=== PATIENT | male | born 1940 | race Caucasian/White ===

== ENCOUNTER 2017-09-09 11:27 | Inpatient (IN) | payer MEDICARE, OTHER ==
[2017-08-23 15:18] LABS: BASOPHILS % (AUTO) 0.4 % (0-1); EOSINOPHILS # (AUTO) 0.3 X10'3 (0-0.9); EOSINOPHILS % (AUTO) 2.7 % (0-6); LYMPHOCYTES # (AUTO) 5.1 X10'3 (1.1-4.8); MEAN CORPUSCULAR HEMOGLOBIN 33.2 PG (27.0-31.0); MEAN CORPUSCULAR HGB CONC 33.9 % (33.0-36.5); MEAN CORPUSCULAR VOLUME 97.9 FL (78-98); MEAN PLATELET VOLUME 9.4 FL (7.4-10.4); MONOCYTES # (AUTO) 0.6 X10'3 (0-0.9); MONOCYTES % (AUTO) 5.8 % (2-12); NEUTROPHILS # (AUTO) 3.8 X10'3 (1.8-7.7); NEUTROPHILS % (AUTO) 39.1 % (42-75); PRE OP HEMATOCRIT 43.6 % (42.0-52.0); PRE OP HEMOGLOBIN 14.8 g/dL (14.0-17.9); PRE OP PLATELET COUNT 161 X10'3 (140-440); RED BLOOD COUNT 4.45 X10'6 (4.70-6.10); RED CELL DISTRIBUTION WIDTH 12.7 % (11.5-14.5)
[2017-08-23 15:36] LABS: ALBUMIN/GLOBULIN RATIO 1.5 (1.1-1.5); ALKALINE PHOSPHATASE 88 IU/L (46-116); BLOOD UREA NITROGEN 20 MG/DL (7-18); CALCIUM 8.9 MG/DL (8.5-10.1); CHLORIDE 107 MMOL/L (99-107); CREATININE 0.91 MG/DL (0.60-1.10); PRE OP ALT 33 U/L (30-65); PRE OP ANION GAP 5 (8-16); PRE OP AST 16 U/L (10-37); PRE OP BILIRUB, TOTAL 1.1 MG/DL (0.0-1.0); PRE OP GLUCOSE 88 MG/DL (70-104); PRE OP POTASSIUM 3.6 MMOL/L (3.4-5.1); PRE OP SODIUM 141 MMOL/L (135-145); TOTAL PROTEIN 6.7 G/DL (6.4-8.2); eGFR 81 ML/MIN
[~2017-09-09] VITALS: Ht 180.3 cm; Wt 95.1 kg
[2017-09-09] VITALS (18 sets, daily range): BP systolic 107–142; BP diastolic 51–79
[~2017-09-09 11:27] MED LIST: ASPI-1265 PO; Cefazolin 2GM/50ML dext iso,osmotic IVPB IV ONE; MULT-38 PO; SIMV20TA5 PO; famotidine 20mg tablet PO ONE; ringers solution, lacted 1,000 ML IV SCH; tranexamic acid inj. 1,000 MG in normal saline 100ml IV soln 90 ML IV ONE; vancomycin inj 1,500 MG in normal saline 300ml IV soln IV ONE
[2017-09-09] MEDS ORDERED: ceFAZolin 1000mg inj ONE ×2 (11:40→14:21)
[2017-09-09] MEDS ORDERED: LIDOcaine 1% (10mg/ml) 2ml vial ONE (12:23)
[2017-09-09] MEDS ORDERED: ROPIVAcaine 0.5% (5mg/ml) 30ml vial ONE (12:50)
[2017-09-09] MEDS ORDERED: tetracaine 1% (10mg/ml) pres. free inj. ONE (12:50)
[2017-09-09] MEDS ORDERED: fentaNYL/PF 50MCG/1 ML 2ML syringe ONE (12:59)
[2017-09-09] MEDS ORDERED: MIDAZolam 1mg/ml 10ml vial ONE (13:09)
[2017-09-09] MEDS ORDERED: ringers solution, lacted 1,000 ML IV SCH (13:32)
[2017-09-09] MEDS ORDERED: enalaprilat dihydrate 2.5mg/2ml vial IV PRN (13:35)
[2017-09-09] MEDS ORDERED: ondansetron/PF 4mg/2ml inj IV PRN ×2 (13:35)
[2017-09-09] MEDS ORDERED: fentaNYL/PF 50MCG/1 ML 2ML syringe IV PRN ×2 (13:35)
[2017-09-09] MEDS ORDERED: hydrALAZINE 20mg/ml inj. IV PRN (13:35)
[2017-09-09] MEDS ORDERED: morphine 4 MG/ML inj SYRINge IV PRN ×2 (13:35)
[2017-09-09] MEDS ORDERED: diphenhydrAMINE 50 mg/ml inj IV PRN (13:35)
[2017-09-09] MEDS ORDERED: magnesium hydroxide 30ml (MOM) UD suspension PO PRN (15:25)
[2017-09-09] MEDS ORDERED: HYDROmorphone inj. 0.5 MG/0.5 ML DISP.SYRIN IV PRN (15:25)
[2017-09-09] MEDS ORDERED: acetaminophen 325mg tablet PO PRN (15:25)
[2017-09-09] MEDS ORDERED: diphenhydrAMINE 25mg capsule PO PRN ×2 (15:25)
[2017-09-09] MEDS ORDERED: bisacodyl 10mg suppository rectal RC PRN (15:25)
[2017-09-09] MEDS ORDERED: ASPI-1265 PO (15:51)
[2017-09-09] MEDS ORDERED: MULT-38 PO (15:51)
[2017-09-09] MEDS ORDERED: SIMV20TA5 PO (15:51)
[2017-09-09] MEDS ORDERED: aspirin 325mg tablet PO SCH (17:30)
[2017-09-09] MEDS ORDERED: tranexamic acid inj. 1,000 MG in normal saline 100ml IV soln 100 ML IV ONE (18:25)
[2017-09-09] MEDS: ondansetron/PF 4mg/2ml inj IV PRN (19:58)
[2017-09-09] MEDS: ceFAZolin 1GM/D5W- ADD-VANTAGE 50 ML IV SCH (20:09)
[2017-09-09] MEDS: potassium Cl 20mEq in NS 1,000 ML IV SCH (20:09)
[2017-09-09] MEDS ORDERED: aspirin 81mg tab.chew PO ONE (21:15)
[2017-09-09] MEDS: sennosides 8.6mg tablet PO SCH (21:16)
[2017-09-09] MEDS: atorvastatin 20mg tablet PO SCH (21:16)
[2017-09-09] MEDS: HYDROcodone/acetaminophen 10/325mg tab PO PRN (23:00)
[2017-09-10] MEDS ORDERED: vancomycin/NS 1 GM ADD-VANTAGE 250 ML IV SCH
[2017-09-10 02:46] VITALS: BP 118/43
[2017-09-10] MEDS: ondansetron/PF 4mg/2ml inj IV PRN (03:07)
[2017-09-10] MEDS: ceFAZolin 1GM/D5W- ADD-VANTAGE 50 ML IV SCH (04:07)
[2017-09-10] MEDS: potassium Cl 20mEq in NS 1,000 ML IV SCH ×3 (04:10→22:03)
[2017-09-10 05:00] VITALS: BP 150/64
[2017-09-10] MEDS: HYDROcodone/acetaminophen 10/325mg tab PO PRN ×4 (05:26→17:55)
[2017-09-10 05:49] LABS: BASOPHILS % (AUTO) 0.2 % (0-1); EOSINOPHILS % (AUTO) 0 % (0-6); HEMATOCRIT 35.9 % (42.0-52.0); HEMOGLOBIN 12.3 g/dl (14.0-17.9); LYMPHOCYTES # (AUTO) 3.1 X10'3 (1.1-4.8); LYMPHOCYTES % (AUTO) 22.1 % (21-51); MEAN CORPUSCULAR HEMOGLOBIN 33.4 PG (27.0-31.0); MEAN CORPUSCULAR HGB CONC 34.3 % (33.0-36.5); MEAN CORPUSCULAR VOLUME 97.4 FL (78-98); MEAN PLATELET VOLUME 9.6 FL (7.4-10.4); MONOCYTES # (AUTO) 0.7 X10'3 (0-0.9); MONOCYTES % (AUTO) 4.8 % (2-12); NEUTROPHILS # (AUTO) 10.3 X10'3 (1.8-7.7); NEUTROPHILS % (AUTO) 72.9 % (42-75); PLATELET COUNT 137 X10'3 (140-440); RED BLOOD COUNT 3.69 X10'6 (4.70-6.10); RED CELL DISTRIBUTION WIDTH 12.9 % (11.5-14.5); WHITE BLOOD COUNT 14.1 X10'3 (4.5-11.0)
[2017-09-10 06:26] LABS: ALANINE AMINOTRANSFERASE 39 U/L (12-78); ALBUMIN/GLOBULIN RATIO 1.2 (1.1-1.5); ALKALINE PHOSPHATASE 66 IU/L (46-116); ANION GAP 4 (8-16); ASPARTATE AMINO TRANSFERASE 21 U/L (10-37); BILIRUBIN,TOTAL 0.8 MG/DL (0.1-1.0); BLOOD UREA NITROGEN 13 MG/DL (7-18); BUN/CREATININE RATIO 12.4 (5.4-32.0); CALCIUM 7.7 MG/DL (8.5-10.1); CHLORIDE 106 MMOL/L (99-107); CREATININE 1.05 MG/DL (0.60-1.10); GLUCOSE 146 MG/DL (70-104); POTASSIUM 4.4 MMOL/L (3.5-5.1); SODIUM 138 MMOL/L (135-145); TOTAL CARBON DIOXIDE 28.2 MMOL/L (24-32); TOTAL PROTEIN 5.6 G/DL (6.4-8.2); eGFR 68 ML/MIN
[2017-09-10] MEDS ORDERED: aspirin 81mg tablet.DR PO SCH (08:00)
[2017-09-10] MEDS ORDERED: aspirin 81mg tab.chew PO SCH (08:00)
[2017-09-10] MEDS: multivitamins, therapeutics tablet PO SCH (08:44)
[2017-09-10 10:00] VITALS: BP 119/65
[2017-09-10 18:00] VITALS: BP 152/74
[2017-09-10] MEDS: sennosides 8.6mg tablet PO SCH (20:10)
[2017-09-10] MEDS: aspirin 81mg tab.chew PO SCH (20:10)
[2017-09-10] MEDS: atorvastatin 20mg tablet PO SCH (20:10)
[2017-09-10 22:14] VITALS: BP 158/89
[2017-09-11 05:00] VITALS: BP 117/78
[2017-09-11] MEDS: HYDROcodone/acetaminophen 10/325mg tab PO PRN ×4 (05:01→20:42)
[2017-09-11 05:20] LABS: BASOPHILS % (AUTO) 0.2 % (0-1); EOSINOPHILS # (AUTO) 0.1 X10'3 (0-0.9); EOSINOPHILS % (AUTO) 0.7 % (0-6); HEMATOCRIT 35.4 % (42.0-52.0); HEMOGLOBIN 12.2 g/dl (14.0-17.9); LYMPHOCYTES # (AUTO) 4.8 X10'3 (1.1-4.8); LYMPHOCYTES % (AUTO) 25.1 % (21-51); MEAN CORPUSCULAR HEMOGLOBIN 33.8 PG (27.0-31.0); MEAN CORPUSCULAR HGB CONC 34.4 % (33.0-36.5); MEAN CORPUSCULAR VOLUME 98.1 FL (78-98); MEAN PLATELET VOLUME 9.9 FL (7.4-10.4); MONOCYTES # (AUTO) 1.4 X10'3 (0-0.9); MONOCYTES % (AUTO) 7.4 % (2-12); NEUTROPHILS # (AUTO) 12.8 X10'3 (1.8-7.7); NEUTROPHILS % (AUTO) 66.6 % (42-75); PLATELET COUNT 124 X10'3 (140-440); RED BLOOD COUNT 3.61 X10'6 (4.70-6.10); RED CELL DISTRIBUTION WIDTH 13.3 % (11.5-14.5); WHITE BLOOD COUNT 19.2 X10'3 (4.5-11.0)
[2017-09-11 06:14] LABS: ALANINE AMINOTRANSFERASE 47 U/L (12-78); ALBUMIN 3.3 G/DL (3.4-5.0); ALBUMIN/GLOBULIN RATIO 1.1 (1.1-1.5); ALKALINE PHOSPHATASE 81 IU/L (46-116); ANION GAP 7 (8-16); ASPARTATE AMINO TRANSFERASE 27 U/L (10-37); BILIRUBIN,TOTAL 1.3 MG/DL (0.1-1.0); BLOOD UREA NITROGEN 13 MG/DL (7-18); BUN/CREATININE RATIO 12.4 (5.4-32.0); CALCIUM 8.8 MG/DL (8.5-10.1); CHLORIDE 103 MMOL/L (99-107); CREATININE 1.05 MG/DL (0.60-1.10); GLUCOSE 125 MG/DL (70-104); POTASSIUM 3.6 MMOL/L (3.5-5.1); SODIUM 138 MMOL/L (135-145); TOTAL CARBON DIOXIDE 28.1 MMOL/L (24-32); TOTAL PROTEIN 6.4 G/DL (6.4-8.2); eGFR 68 ML/MIN
[2017-09-11] MEDS ORDERED: HYDROcodone/acetaminophen 10/325mg tab PO ONE (06:50)
[2017-09-11] MEDS: aspirin 81mg tab.chew PO SCH ×2 (07:09→19:53)
[2017-09-11] MEDS: multivitamins, therapeutics tablet PO SCH (07:09)
[2017-09-11 10:00] VITALS: BP 178/78
[2017-09-11 18:00] VITALS: BP 176/74
[2017-09-11] MEDS: atorvastatin 20mg tablet PO SCH (19:54)
[2017-09-11] MEDS: sennosides 8.6mg tablet PO SCH (19:54)
[2017-09-11 23:00] VITALS: BP 135/59
[2017-09-12] MEDS: HYDROcodone/acetaminophen 10/325mg tab PO PRN ×6 (01:12→14:01)
[2017-09-12 05:24] LABS: BASOPHILS % (AUTO) 0.1 % (0-1); EOSINOPHILS % (AUTO) 0.1 % (0-6); HEMATOCRIT 31.1 % (42.0-52.0); HEMOGLOBIN 10.7 g/dl (14.0-17.9); LYMPHOCYTES # (AUTO) 3.9 X10'3 (1.1-4.8); LYMPHOCYTES % (AUTO) 26.6 % (21-51); MEAN CORPUSCULAR HEMOGLOBIN 33.5 PG (27.0-31.0); MEAN CORPUSCULAR HGB CONC 34.3 % (33.0-36.5); MEAN CORPUSCULAR VOLUME 97.6 FL (78-98); MEAN PLATELET VOLUME 9.8 FL (7.4-10.4); MONOCYTES # (AUTO) 1.3 X10'3 (0-0.9); MONOCYTES % (AUTO) 8.7 % (2-12); NEUTROPHILS # (AUTO) 9.5 X10'3 (1.8-7.7); NEUTROPHILS % (AUTO) 64.5 % (42-75); PLATELET COUNT 121 X10'3 (140-440); RED BLOOD COUNT 3.19 X10'6 (4.70-6.10); WHITE BLOOD COUNT 14.8 X10'3 (4.5-11.0)
[2017-09-12 06:00] VITALS: BP 148/65
[2017-09-12 06:01] LABS: ALANINE AMINOTRANSFERASE 43 U/L (12-78); ALBUMIN 2.8 G/DL (3.4-5.0); ALBUMIN/GLOBULIN RATIO 0.9 (1.1-1.5); ALKALINE PHOSPHATASE 95 IU/L (46-116); ANION GAP 6 (8-16); ASPARTATE AMINO TRANSFERASE 29 U/L (10-37); BILIRUBIN,TOTAL 1.9 MG/DL (0.1-1.0); BLOOD UREA NITROGEN 10 MG/DL (7-18); BUN/CREATININE RATIO 12.2 (5.4-32.0); CALCIUM 9.2 MG/DL (8.5-10.1); CHLORIDE 103 MMOL/L (99-107); CREATININE 0.82 MG/DL (0.60-1.10); GLUCOSE 114 MG/DL (70-104); POTASSIUM 3.4 MMOL/L (3.5-5.1); SODIUM 138 MMOL/L (135-145); eGFR > 90 ML/MIN
[2017-09-12] MEDS ORDERED: HYDR-3972 PO (06:48)
[2017-09-12] MEDS ORDERED: WALKERFR (06:49)
[2017-09-12] MEDS: multivitamins, therapeutics tablet PO SCH (07:34)
[2017-09-12] MEDS: aspirin 81mg tab.chew PO SCH (07:34)
[2017-09-12 10:01] VITALS: BP 152/70
== END 2017-09-12 14:49 | disposition home or self-care (01) | DRG 470 ==
LOC: PAS IN 11:27 → EDSTATUS 14:30 → ORTHO 4S 16:35
PROVIDERS: ADMIT Orthopaedic Surgery; ATTEND Orthopaedic Surgery
PROC: 3E0T3BZ Introduction of Anesthetic Agent into Peripheral Nerves and Plexi, Percutaneous Approach (ICD-10-PCS; 2017-09-09)
PROC: 0SRD0J9 Replacement of Left Knee Joint with Synthetic Substitute, Cemented, Open Approach (ICD-10-PCS; principal; 2017-09-09 12:51)
DX: M17.12 Unilateral primary osteoarthritis, left knee (principal); D62 Acute posthemorrhagic anemia; E78.5 Hyperlipidemia, unspecified; Z79.899 Other long term (current) drug therapy; Z85.46 Personal history of malignant neoplasm of prostate
CPT/HCPCS: 36415; 80053; 85025; 85610; 85730; 86870; 86885; 86900; 86901; 86920; 86922; 87070; 93005; 97110; 97116; 97162; 97530; A6449; A6454; A7000; C1713; C1758; C1776; J0690; J2250; J2405; J2795; J3010; J3370; J3490; J7030; J7120; Q0163